=== PATIENT | female | born 1990 | race Caucasian/White ===

== ENCOUNTER 2017-02-25 14:13 | Emergency (ER) | payer BC ==
[2017-02-25 15:09] VITALS: BP 140/66
--- NOTE | 2017-02-25 15:28 | UC ---
Throat Pain/Nasal Jim HPI - HPI Summary HPI Summary: complaint of fever and chills since last night intermittent headaches slight muscle achiness has been nauseated but no vomiting nasal congestion for over 2 weeks mild sore throat denies cough denies diarrhea denies dysuria works with animals as veterinary technician - doesnt recall tick bite or rash took some acetaminophen with some relief - History of Current Complaint Chief Complaint: UCRespiratory Stated Complaint: FEVER,NAUSEA,HEADACHE Time Seen by Provider: 02/25/17 15:01 Hx Obtained From: Patient Hx Last Menstrual Period: February 15, 2017 - Allergies/Home Medications Allergies/Adverse Reactions: Allergies Allergy/AdvReac Type Severity Reaction Status Date / Time Azithromycin Allergy Nausea And Verified 02/25/17 15:09 Vomiting Penicillins [PCN] Allergy Rash Verified 02/25/17 15:09 Home Medications: Home Medications Norelgestromin-Ethinyl Estradi [Xulane 150-35 Mcg/24Hr] 02/25/17 [History] PMH/Surg Hx/FS Hx/Imm Hx Previously Healthy: Yes Respiratory History Of: Reports: Asthma - Surgical History Surgical History: None - Family History Known Family History: Negative: Cardiac Disease, Hypertension, Diabetes - Social History Occupation: Employed Full-time Lives: With Family Alcohol Use: None Substance Use Type: None Smoking Status (MU): Never Smoked Tobacco Review of Systems Constitutional: Fever, Chills Skin: Negative Eyes: Negative ENT: Nasal Discharge Respiratory: Cough Cardiovascular: Negative Gastrointestinal: Negative Genitourinary: Negative Motor: Negative Neurovascular: Negative Musculoskeletal: Negative Neurological: Negative Psychological: Negative All Other Systems Reviewed And Are Negative: Yes Physical Exam Triage Information Reviewed: Yes Appearance: No Pain Distress, Well-Nourished Vital Signs: Initial Vital Signs Temp 100.0 F 02/25/17 15:02 Pulse 129 02/25/17 15:02 Resp 16 02/25/17 15:02 BP 140/66 02/25/17 15:02 Pulse Ox 98 02/25/17 15:02 Vital Signs Reviewed: Yes Eyes: Positive: Conjunctiva Clear ENT: Positive: Pharyngeal erythema, Nasal congestion, TMs normal, Other: - no sinus tenderness Neck: Positive: Supple, No Lymphadenopathy Respiratory: Positive: Lungs clear, Normal breath sounds, No respiratory distress, No accessory muscle use Cardiovascular: Positive: RRR, No Murmur, Pulses Normal Abdomen Description: Positive: Nontender, No Organomegaly, Soft. Negative: CVA Tenderness (R), CVA Tenderness (L), Distended, Guarding Bowel Sounds: Positive: Present Musculoskeletal: Positive: No Edema Neurological Exam: Normal Psychological Exam: Normal Skin Exam: Normal Throat Pain/Nasal Course/Dx - Course Course Of Treatment: exam cpmpleted. negative for strep. symptomatic treatment for viral illness - Differential Dx/Diagnosis Differential Diagnosis/HQI/PQRI: Influenza, Sinusitis, Tonsillitis, URI, Other - pneumonia, UTI, lyme Provider Diagnoses: viral illness Discharge - Discharge Plan Condition: Stable Disposition: HOME Patient Education Materials: Fever in Adults (ED) Referrals: No Primary Care Phys,NOPCP [Primary Care Provider] - [facility] [place] [facility] [Outside] Additional Instructions: Increase fluids and rest Take acetaminophen or ibuprofen for fever or pain Please review your discharge instructions. If your symptoms do not improve please call your primary care provider or return to urgent care.
== END 2017-02-25 16:05 | disposition home or self-care (01) ==
LOC: UCEAST 14:13
DX: B34.9 Viral infection, unspecified (principal); J45.909 Unspecified asthma, uncomplicated; Z88.1 Allergy status to other antibiotic agents; Z88.0 Allergy status to penicillin
CPT/HCPCS: 87651; 99201; G0463